=== PATIENT | female | born 1940 | race Caucasian/White ===

== ENCOUNTER 2016-07-09 10:32 | Emergency (ER) | payer MEDICARE, BC ==
[2016-07-09] MEDS ORDERED: Lidocaine 1% w/Epinephrine 1:100K 30 ML VIAL ONE (11:08)
[2016-07-09] MEDS ORDERED: Ondansetron ODT 4 MG TAB ONE (11:11)
[2016-07-09] MEDS ORDERED: Bacitracin Zinc 1 Packet ONE (11:38)
[2016-07-09] MEDS ORDERED: Adacel (T-DAP) 0.5 ML VIAL ONE (12:09)
--- NOTE | 2016-07-09 12:36 | CT ---
CT OF THE BRAIN WITHOUT CONTRAST: DATE: 07/09/16. FINDINGS: A noncontrast CT was done following trauma. The ventricles are normal in size for age and show no s hift. No intracranial bleeding or extraaxial hematoma was seen. There is no sign of acute stroke o r edema. A few patchy hypolucencies in the deep white matter, particularly around the left frontal horn and basal ganglia, probably old lacunar infarcts and/or other chronic ischemic changes. The ca lvarium appears intact. The sphenoid sinus and mastoid air cells are clear. IMPRESSION: No acute intracranial findings. POS: [facility]
--- NOTE | 2016-07-09 12:47 | RAD ---
CHEST 2 VIEWS: DATE: 07/09/16. FINDINGS: Comparison is made with a 12/17/14 study. The heart seems slightly larger today than before, but there are no congestive changes or pleural ef fusions. The lungs seem fully inflated and clear. No gross fractures were identified. There is no mediastinal widening or shift. The visible thoracic vertebra on the lateral shows some degenerativ e change, but no obvious fracture. IMPRESSION: Possible slight increase in heart size since 2014. No acute traumatic findings. POS: [facility]
--- NOTE | 2016-07-09 12:48 | ERRECORD ---
[facility] EMERGENCY RECORD HPI FALL (10:44 MBRI) CHIEF COMPLAINT: Patient presents for evaluation of fall. HISTORIAN: History provided by patient, History provided by patient's family. LOCATION: Symptoms are localized. QUALITY: Pain is dull in nature, described as aching. TIME COURSE: Sudden onset of symptoms, just prior to arrival, There has been no change in the patient's symptoms over time. SEVERITY: Maximum severity of symptoms moderate, Currently symptoms are moderate. ASSOCIATED WITH: No associated neck pain, No associated chest pain, No associated abdominal pain, No associated back pain, No associated clavicle pain, No associated shoulder pain, No associated elbow pain, No associated wrist pain, No associated hand pain, No associated hip pain, No associated knee pain, No associated ankle pain, No associated abrasion(s), No associated contusion(s), Associated with laceration(s), to the face, No associated deformity, No associated blurred vision, No associated inability to ambulate, No associated inability to bear weight, No associated headache, No associated loss of consciousness, No associated near syncope, No associated neurological symptoms prior to arrival, No associated numbness, No associated paresthesias, No associated shortness of breath, No associated syncope, No associated tingling, No associated vomiting. EXACERBATED BY: Patient's condition exacerbated by nothing. RELIEVED BY: Patient's condition relieved by nothing. RISK FACTORS: No risk factors for spinal injury, Risk factors for intracranial bleed, include age very old, include Eliquis. ROS (10:44 MBRI) CONSTITUTIONAL: Negative constitutional review of systems, Historian denies chills, denies fever. EYES: Negative eye review of systems. ENT: Historian denies rhinorrhea, denies sore throat. CARDIOVASCULAR: Historian denies chest pain, denies dyspnea on exertion. RESPIRATORY: Historian denies cough, denies shortness of breath. GI: Negative gastrointestinal review of systems, Historian denies abdominal pain, denies diarrhea, denies nausea, denies vomiting. GENITOURINARY FEMALE: Historian denies dysuria, denies frequency, denies hematuria, denies urine output changes. MUSCULOSKELETAL: Historian denies back pain, denies deformity, reports fall, reports injury, denies neck pain. SKIN: Negative skin review of systems, Historian denies skin changes. NEUROLOGIC: Negative neurologic review of systems, Historian denies focal weakness, denies sensory changes. HEMO/LYMPHATIC: Historian reports abnormal blood clotting, reports easy bruising. &a-1R&a+25V*p+0X*[id number]*c202B*c15G*c2P*p-0X&a-25V&a+1R Name: Jing Alonzo : 1940 F76 MedRec: [id number] AcctNum: [id number] Prepared: TueJul 09, 2016 12:45 by Interface Page 1 of 5 pMD [facility] EMERGENCY RECORD PAST MEDICAL HISTORY (10:50 LGIB) MEDICAL HISTORY: Flu vaccine up to date, Tetanus not up to date, Pneumococcal vaccine up to date, Past medical history includes history of hypertension, which has been treated, Past medical history includes neurological disease, vertigo. GERD, AFIB, VERIFIED 07/09/16. FEMALE SURGICAL HISTORY: BLADDER SUSPENSION, Surgical history of cholecystectomy, Surgical history of hysterectomy. lt hip replacement. VERIFIED 07/09/16. PSYCHIATRIC HISTORY: ANXIETY. VERIFIED 07/09/16. SOCIAL HISTORY: Patient denies alcohol use, Patient denies drug use, Patient has no smoking history. VERIFIED 07/09/16. KNOWN ALLERGIES Cipro tablet: Reaction: Rash Demerol Penicillins Sulfa (Sulfonamide Antibiotics) CURRENT MEDICATIONS ALPRAZolam: TABLET : Strength - 0.5 mg : ORAL Patient Dose: 0.5 mg Oral every 8 hours PRN. (10:57 LGIB) Coreg: TABLET : Strength - 6.25 mg : ORAL Patient Dose: 1 tab(s) Oral 2 times a day. (10:57 LGIB) Eliquis: TABLET : Strength - 5 mg : ORAL Patient Dose: 5 mg Oral 2 times a day. (10:57 LGIB) Protonix: TABLET, DELAYED RELEASE (ENTERIC COATED) : Strength - 40 mg : ORAL Patient Dose: 40 mg Oral once a day. (10:57 LGIB) escitalopram oxalate: TABLET : Strength - 10 mg : ORAL Patient Dose: 1 tab(s) Oral once a day. (10:57 LGIB) Premarin: TABLET : Strength - 0.3 mg : ORAL Patient Dose: 1 tab(s) Oral once a day (at bedtime). (10:57 LGIB) meclizine: TABLET : Strength - 25 mg : ORAL Patient Dose: 1 tab(s) Oral As Needed. (10:58 LGIB) Multaq: TABLET : Strength - 400 mg : ORAL Patient Dose: Unknown. (10:58 LGIB) VITAL SIGNS VITAL SIGNS: BP: 225/102, Pulse: 66, Resp: 18, O2 sat: 99 on Room Air, Time: 07/09/2016 10:41. (10:41 LGIB) Temp: 98.2 (Oral), Pain: 6, Time: 07/09/2016 10:46. (10:46 LGIB) &a-1R&a+25V*p+0X*[id number]*c202B*c15G*c2P*p-0X&a-25V&a+1R Name: Jing Alonzo : 1940 F76 MedRec: [id number] AcctNum: [id number] Prepared: TueJul 09, 2016 12:45 by Interface Page 2 of 5 pMD [facility] EMERGENCY RECORD BP: 174/82, Pulse: 56, Resp: 18 (Non-Labored), O2 sat: 99 on Room Air, Time: 07/09/2016 10:50. (10:50 LGIB) BP: 157/87, Pulse: 60, Resp: 17 (Non-Labored), Pain: 2, O2 sat: 99 on Room Air, Time: 07/09/2016 12:23. (12:23 LGIB) BP: 164/90, Pulse: 60, Resp: 17 (Non-Labored), O2 sat: 98 on Room Air, Time: 07/09/2016 11:16. (11:16 LGIB) PHYSICAL EXAM (10:44 MBRI) CONSTITUTIONAL: Vital Signs Reviewed, Nursing notes reviewed. HEAD: Head exam included findings of, no Sutherland's sign, No raccoon eyes, contusion with stellate lac of the left lat eyebrow. No local sig ttp noted and no step of the sup orbital rim noted. Remainder of the face and skull have no injury and no ttp noted., normocephalic. EYES: Eye exam included findings of eyelids normal to inspection, Pupils equally round and reactive to light, Extraocular muscles intact. ENT: Ear exam normal, external ear normal, tympanic membranes normal, Pharynx exam normal. NECK: Neck exam included findings of normal range of motion, Trachea midline, no tenderness, no abrasions, no contusions, no ecchymosis, neck clinically cleared without findings of injury and pt A and O x3 and without pain. RESPIRATORY CHEST: Respiratory exam included findings of no respiratory distress, Breath sounds clear, No wheezing, No rales, No rhonchi. CARDIOVASCULAR: Cardiovascular exam included findings of heart rate regular rate and rhythm, Heart sounds normal, Carotids normal. ABDOMEN FEMALE: Abdominal exam included findings of abdomen nontender, Bowel sounds normal, no distension, no pulsatile masses, no peritoneal signs, no rigidity, no guarding, no rebound. BACK: Back exam included findings of normal inspection, no tenderness. UPPER EXTREMITY: Upper extremity exam included findings of inspection normal, range of motion normal, Radial pulse normal, capillary refill less than 2 seconds, distal motor intact, distal sensory intact, no cyanosis, no clubbing, no edema, No trauma noted., Upper extremity exam included findings of inspection normal, Radial pulse normal, no cyanosis, no clubbing, no edema. LOWER EXTREMITY: Left pelvis exam normal, Right pelvis exam normal, Left hip exam normal, Right hip exam normal, Left thigh exam normal, Right thigh exam normal, Left knee exam normal, Right knee exam normal, Left lower leg exam normal, Right lower leg exam normal, Left ankle exam normal, Right ankle exam normal, Left foot exam normal, Right foot exam normal, Lower extremity exam included findings of inspection normal, femoral pulses normal, no cyanosis, no clubbing, no edema, no tenderness noted. NEURO: Neuro exam findings include patient oriented to person, place and time, Speech normal, no focal motor deficits. &a-1R&a+25V*p+0X*[id number]*c202B*c15G*c2P*p-0X&a-25V&a+1R Name: Jing Alonzo : 1940 F76 MedRec: [id number] AcctNum: [id number] Prepared: TueJul 09, 2016 12:45 by Interface Page 3 of 5 pMD [facility] EMERGENCY RECORD SKIN: Skin exam included findings of skin warm, dry, and normal in color, 2cm laceration stellate to the left eyebrow, with contusion. EKG INTERPRETATION (11:14 MBRI) 12 LEAD EKG INTERPRETATION: 12 lead EKG interpreted by Emergency Department Physician at time of study, 12 lead EKG shows normal sinus rhythm, Rate (beats per minute): 62, with premature atrial complexes, Conduction with, complete right bundle branch block, ST segments normal, T waves normal, [place], left. RADIOLOGYINTERPRETATION HEAD: Head CT negative, without contrast, no bleed, no acute changes. (12:00 MBRI) CHEST: Chest films negative, no infiltrates, no pneumothorax, no effusion. (12:16 MBRI) SLACK LINE YARDER: Preliminary review of CT scans by, Radiologist. (12:00 MBRI) Preliminary review of x-rays by, ED Physician. (12:16 MBRI) MEDICATION ADMINISTRATION SUMMARY Drug Name: Adacel(Tdap Adolesn/Adult)(PF), Dose Ordered: 0.5 mL, Route: Intramuscular, Status: Given, Time: 12:15 07/09/2016, Drug Name: ondansetron, Dose Ordered: 4 mg, Route: Sublingual, Status: Given, Time: 11:12 07/09/2016, Detailed record available in Medication Service section. DOCTOR NOTES TEXT: Pt evaluated at this time and appears stable. No findings on my exam or studies to suggest sig injury or issue requiring hospitalization or intervention/consultation. Plan of care discussed with pt and questions answered. Pt was informed of reasons for follow-up and strict reasons for return and they stated understanding. Pt is stable for d/c home at this time. (12:18 MBRI) PT has a hx of HTN and has been asymptomatic with the current pressure. No evidence at this time to suggest an associated cardiovascular or neurologic process requiring further intervention or evaluation during this encounter. The patient is on a medication regimen for this and it is recommended that they follow-up with their PMD to further assess their BP control. (12:30 MBRI) PROBLEM LIST No recorded problems DIAGNOSIS (12:20 MBRI) FINAL: PRIMARY: minor head injury, ADDITIONAL: facial contusion, facial laceration, left rib pain. &a-1R&a+25V*p+0X*f6216Z*c202B*c15G*c2P*p-0X&a-25V&a+1R Name: Jing Alonzo : 1940 F76 MedRec: [id number] AcctNum: [id number] Prepared: TueJul 09, 2016 12:45 by Interface Page 4 of 5 pMD [facility] EMERGENCY RECORD PRESCRIPTION (12:22 MBRI) traMADol: TABLET : 50 mg : ORAL : Quantity: 1 Unit: tab(s) Route: ORAL Schedule: every 6 hours PRN Dispense: 20 May substitute. Refills: No Refills . NOTES: No refills. DISPOSITION PATIENT: Disposition Type: Discharge, Disposition: *Discharge Home, Condition: Good. (12:20 MBRI) Patient left the department. (12:37 LGIB) Ahuja: VICKIB=GABRIELLE Harris, Mickie MBRI=DO Shepard Matthew &a-1R&a+25V*p+0X*u5000X*c202B*c15G*c2P*p-0X&a-25V&a+1R Name: Jing Alonzo : 1940 F76 MedRec: [id number] AcctNum: [id number] Prepared: TueJul 09, 2016 12:45 by Interface Page 5 of 5 pMD MTDD
--- NOTE | 2016-07-09 12:54 | PICIS ---
[facility] EMERGENCY RECORD TRIAGE (TueJul 09, 2016 10:41 LGIB) PATIENT: NAME: Jing Alonzo, AGE: 76, GENDER: female, : Sat 1940, TIME OF GREET: TueJul 09, 2016 10:33, PREFERRED LANGUAGE: Irish, ETHNICITY: Not or , ECODE BILLING MAP: [facility], SSN: [id number], Zip Code: [address], KG WEIGHT: 72.57, PHONE: , , , PERSON ID: [id number], PAYMENT: [employer]. (TueJul 09, 2016 10:41 LGIB) TRIAGE NOTES: fall in laundry room, hit head. small laceration to left forehead. AOX4, NAD, RR even and unlabored. PT TAKES ELIQUIS. Denies neck pain. (TueJul 09, 2016 10:41 LGIB) COMPLAINT: fall. (TueJul 09, 2016 10:41 LGIB) ADMISSION: URGENCY: 2 Emergent, ADMISSION SOURCE: Home, TRANSPORT: CAR, BED: ER -02. (TueJul 09, 2016 10:41 LGIB) SIRS SCORING: Heart Rate 55-109 (0), Temp range 96.8-101.1 (0), respiratory rate 12-24 (0), Mental Status altered: no (0), Total SIRS Score 0. (10:50 LGIB) PROVIDERS: TRIAGE NURSE: Mickie Harris RN. (TueJul 09, 2016 10:41 LGIB) PREVIOUS VISIT ALLERGIES: Cipro tablet, Demerol, Penicillins, Sulfa (Sulfonamide Antibiotics). (TueJul 09, 2016 10:41 LGIB) Cipro tablet, Demerol, Penicillins, Sulfa (Sulfonamide Antibiotics). (10:50 LGIB) KNOWN ALLERGIES Cipro tablet: Reaction: Rash Demerol Penicillins Sulfa (Sulfonamide Antibiotics) CURRENT MEDICATIONS ALPRAZolam: TABLET : Strength - 0.5 mg : ORAL Patient Dose: 0.5 mg Oral every 8 hours PRN. (10:57 LGIB) Coreg: TABLET : Strength - 6.25 mg : ORAL Patient Dose: 1 tab(s) Oral 2 times a day. (10:57 LGIB) Eliquis: TABLET : Strength - 5 mg : ORAL Patient Dose: 5 mg Oral 2 times a day. (10:57 LGIB) Protonix: TABLET, DELAYED RELEASE (ENTERIC COATED) : Strength - 40 mg : ORAL Patient Dose: 40 mg Oral once a day. (10:57 LGIB) escitalopram oxalate: TABLET : Strength - 10 mg : ORAL Patient Dose: 1 tab(s) Oral once a day. (10:57 LGIB) Premarin: TABLET : Strength - 0.3 mg : ORAL Patient Dose: 1 tab(s) Oral once a day (at bedtime). (10:57 LGIB) &a-1R&a+25V*p+0X*u7802R*c202B*c15G*c2P*p-0X&a-25V&a+1R Name: Jing Alonzo : 1940 F76 MedRec: [id number] AcctNum: [id number] Prepared: TueJul 09, 2016 12:51 by Interface Page 1 of 9 pMD [facility] EMERGENCY RECORD meclizine: TABLET : Strength - 25 mg : ORAL Patient Dose: 1 tab(s) Oral As Needed. (10:58 LGIB) Multaq: TABLET : Strength - 400 mg : ORAL Patient Dose: Unknown. (10:58 LGIB) VITAL SIGNS VITAL SIGNS: BP: 225/102, Pulse: 66, Resp: 18, O2 sat: 99 on Room Air, Time: 07/09/2016 10:41. (10:41 LGIB) Temp: 98.2 (Oral), Pain: 6, Time: 07/09/2016 10:46. (10:46 LGIB) BP: 174/82, Pulse: 56, Resp: 18 (Non-Labored), O2 sat: 99 on Room Air, Time: 07/09/2016 10:50. (10:50 LGIB) BP: 157/87, Pulse: 60, Resp: 17 (Non-Labored), Pain: 2, O2 sat: 99 on Room Air, Time: 07/09/2016 12:23. (12:23 LGIB) BP: 164/90, Pulse: 60, Resp: 17 (Non-Labored), O2 sat: 98 on Room Air, Time: 07/09/2016 11:16. (11:16 LGIB) NURSING ASSESSMENT: NEURO (10:50 LGIB) GCS: (6) Obeying command:, (5) Orientated:, (4) Spontaneous eye opening., Result: 15. CONSTITUTIONAL: Complex assessment performed, Patient arrives ambulatory, Unsteady gait, Assistance to cart, History obtained from patient, Patient appears comfortable, Patient cooperative, Patient alert, Oriented to person, place and time, Skin warm, Skin dry, Skin normal in color, Mucous membranes pink, Mucous membranes moist, Patient is well-groomed, Patient complains of FALL, PT HAD FALL IN HER LAUNDRY ROOM. FELL FORWARD AND HIT HEAD. DENIES NECK PAIN. DENIES LOC, DENIES NECK PAIN, PT ANSWERING QUESTIONS APPROPRIATELY. AOX4, NAD, RR EVEN AND UNLABORED. TAKES BLOOD THINNING MEDICATION. PAIN: aching pain, LEFT FOREHEAD, ABOVE LEFT ORBIT, Onset of pain 07/09/2016 1000, on a scale 0-10 patient rates pain as 6, Nothing has been tried to alleviate the pain. NEURO: Pupils equally round and reactive to light, Able to close eyes, Face symmetrical, Speech normal, Hand grasps equal, Upper extremity strength strong, Lower extremity strength strong, Foot press equal, no associated dizziness present, no associated loss of consciousness, no associated vomiting, no associated weakness. ENT: Ear assessment findings include ear normal to inspection, Nasal assessment findings include nose normal to inspection, Mouth and throat assessment findings include mouth inspection normal. NOTES: Notes: PT WITH 2CM LACERATION OVER LEFT EYEBROW. BLEEDING CONTROLLED. SAFETY: Side rails up, Cart/Stretcher in lowest position, Family at bedside, Call light within reach, Hospital ID band on. NURSING PROCEDURE: BEDSIDE TESTING (10:55 ERUI) GLUCOSE: Glucose testing indicated for STATUS POST FALL, &a-1R&a+25V*p+0X*k2181J*c202B*c15G*c2P*p-0X&a-25V&a+1R Name: Jing Alonzo : 1940 F76 MedRec: [id number] AcctNum: [id number] Prepared: TueJul 09, 2016 12:51 by Interface Page 2 of 9 pMD [facility] EMERGENCY RECORD Capillary blood sample, Result (mg/dl) 105. SAFETY: Side rails up, Cart/Stretcher in lowest position, Family at bedside, Call light within reach, Hospital ID band on. NURSING PROCEDURE: TOOL CRIB LEAD (10:41 LGIB) TOOL CRIB LEAD: Patient placed on bus monitor, Patient placed on non-invasive blood pressure monitor, Patient placed on continuous pulse oximetry. NURSING PROCEDURE: DISCHARGE NOTE (12:37 LGIB) DISCHARGE: Patient discharged to home, in a wheelchair, family driving, accompanied by other family member, Summary of Care printed/ provided, Patient requested and was provided an electronic copy of Discharge Instructions, Discharge instructions given to patient, Simple or moderate discharge teaching performed, Prescriptions given and instructions on side effects given, Above person(s) verbalized understanding of discharge instructions and follow-up care, Patient treated and evaluated by physician. BELONGINGS: Belongings and valuables with patient at time of discharge include:, Belongings remain with patient, Valuables remain with patient. NURSING PROCEDURE: EKG CHART (10:50 LGIB) EK lead EKG performed on the left chest, done by GABRIELLE ANDINO. FOLLOW-UP: After procedure, EKG for interpretation given to Dr. SHEPARD. NURSING PROCEDURE: NURSE NOTES NURSES NOTES: Notes: PT REPORTING LEFT SIDED RIB PAIN ONCE WE WERE TRYING TO CHANGE INTO HER CLOTHES. DR SHEPARD NOTIFIED AND PATIENT WILL GET AN XRAY. (11:45 LGIB) Notes: BACITRACIN APPLIED TO SUTURE SITE AND COVERED WITH A LARGE BAND-AID. (11:40 LGIB) NURSING PROCEDURE: TRANSPORT TO TESTS TRANSPORT TO TESTS: Transport indicated to facilitate diagnosis, Patient transported to CT scan, via cart, Accompanied by x-ray electro mechanical technician. (10:58 LGIB) Transport indicated to facilitate diagnosis, Patient transported to x-ray, via wheelchair, Accompanied by x-ray electro mechanical technician. (11:53 LGIB) FOLLOW-UP: After procedure, patient returned to emergency department. (11:06 LGIB) NURSING PROCEDURE: WOUND CARE (11:20 LGIB) WOUND CARE: Wound care indicated for preparing wound for repair, Local infiltration with, 1% lidocaine with epinephrine, Wound irrigated with 250 mL of normal saline, by GABRIELLE PARNELL, 100ML NS, Wound repaired with sutures, by DR SHEPARD. ORDER DETAILS &a-1R&a+25V*p+0X*o9708P*c202B*c15G*c2P*p-0X&a-25V&a+1R Name: Jing Alonzo : 1940 F76 MedRec: [id number] AcctNum: [id number] Prepared: TueJul 09, 2016 12:51 by Interface Page 3 of 9 D [facility] EMERGENCY RECORD Order Name: BLOOD GLUCOSE MONITOR, Status: Done, Time: 10:59 07/09/2016, User: ERUI, - Ordered for: DO Shepard Matthew, - Entered by: DO Shepard Matthew - TueJul 09, 2016 10:43, - Quantity: 1, Order Name: TOOL CRIB LEAD ED, Status: Done, Time: 10:53 07/09/2016, User: ALBIN, - Ordered for: DO Shepard Matthew, - Entered by: DO Shepard Matthew - TueJul 09, 2016 10:43, - Quantity: 1, Order Name: CLEAN WOUND, Status: Done, Time: 11:24 07/09/2016, User: LGIB, - Ordered for: DO Shepard Matthew, - Entered by: DO Shepard Matthew - TueJul 09, 2016 10:44, - Quantity: 1, Order Name: CT Brain WO Con, Status: Active, Time: 10:43 07/09/2016, User: MEGAN, - Ordered for: DO Shepard Matthew, - Entered by: DO Shepard Matthew - TueJul 09, 2016 10:43, - Quantity: 1, Order Name: EKG 12 Lead in Emergency Room, Status: Active, Time: 10:43 07/09/2016, User: MBRI, - Ordered for: DO Shepard Matthew, - Entered by: DO Shepard Matthew - TueJul 09, 2016 10:43, - Quantity: 1, Order Name: ERRT Pulse Oximeter ER, Status: Active, Time: 10:43 07/09/2016, User: MBRI, - Ordered for: DO Shepard Matthew, - Entered by: DO Shepard Matthew - TueJul 09, 2016 10:43, - Quantity: 1, Order Name: XR Chest Pa & Lat STANDARD, Status: Active, Time: 11:46 07/09/2016, User: MEGAN, - Ordered for: DO Shepard Matthew, - Entered by: DO Shepard Matthew - TueJul 09, 2016 11:46, - Quantity: 1. MEDICATION ADMINISTRATION SUMMARY Drug Name: Adacel(Tdap Adolesn/Adult)(PF), Dose Ordered: 0.5 mL, Route: Intramuscular, Status: Given, Time: 12:15 07/09/2016, Drug Name: ondansetron, Dose Ordered: 4 mg, Route: Sublingual, Status: Given, Time: 11:12 07/09/2016, Detailed record available in Medication Service section. MEDICATION SERVICE Adacel(Tdap Adolesn/Adult)(PF): Order: Adacel(Tdap Adolesn/Adult)(PF) (diphth,pertuss(acell),tet vac/preservative free) - Dose: 0.5 mL : Intramuscular Ordered by: Quinn Shepard DO &a-1R&a+25V*p+0X*n2915V*c202B*c15G*c2P*p-0X&a-25V&a+1R Name: Jing Alonzo : 1940 F76 MedRec: [id number] AcctNum: [id number] Prepared: TueJul 09, 2016 12:51 by Interface Page 4 of 9 pMD [facility] EMERGENCY RECORD Entered by: Quinn Shepard DO TueJul 09, 2016 12:05 , Acknowledged by: Mickie Harris RN TueJul 09, 2016 12:08 Documented as given by: Mickie Harris RN TueJul 09, 2016 12:15 Patient, Medication, Dose, Route and Time verified prior to administration. IM immunization, Medication administered to right deltoid, Correct patient, time, route, dose and medication confirmed prior to administration, Patient advised of actions and side-effects prior to administration, Allergies confirmed and medications reviewed prior to administration, Patient in position of comfort, Side rails up, Cart in lowest position, Family at bedside. ondansetron: Order: ondansetron - Dose: 4 mg : Sublingual POTENTIAL SEVERE INTERACTION: Multaq - Benefits outweigh risks Schedule: Now Ordered by: Quinn Shepard DO Entered by: Quinn Shepard DO TueJul 09, 2016 11:12 Documented as given by: Mickie Harris RN TueJul 09, 2016 11:12 Patient, Medication, Dose, Route and Time verified prior to administration. Site: Medication administered S.L., Correct patient, time, route, dose and medication confirmed prior to administration, Patient advised of actions and side-effects prior to administration, Allergies confirmed and medications reviewed prior to administration, Patient in position of comfort, Side rails up, Cart in lowest position, Family at bedside. : Follow Up : Decreased nausea. (11:40 LGIB) HPI FALL (10:44 MBRI) CHIEF COMPLAINT: Patient presents for evaluation of fall. HISTORIAN: History provided by patient, History provided by patient's family. LOCATION: Symptoms are localized. QUALITY: Pain is dull in nature, described as aching. TIME COURSE: Sudden onset of symptoms, just prior to arrival, There has been no change in the patient's symptoms over time. SEVERITY: Maximum severity of symptoms moderate, Currently symptoms are moderate. ASSOCIATED WITH: No associated neck pain, No associated chest pain, No associated abdominal pain, No associated back pain, No associated clavicle pain, No associated shoulder pain, No associated elbow pain, No associated wrist pain, No associated hand pain, No associated hip pain, No associated knee pain, No associated ankle pain, No associated abrasion(s), No associated contusion(s), Associated with laceration(s), to the face, No associated deformity, No associated blurred vision, No associated inability to ambulate, No associated inability to bear weight, No associated headache, No associated loss of consciousness, No associated near syncope, No associated neurological symptoms prior to arrival, No associated numbness, No associated paresthesias, No associated shortness of &a-1R&a+25V*p+0X*v0628X*c202B*c15G*c2P*p-0X&a-25V&a+1R Name: Jing Alonzo : 1940 F76 MedRec: [id number] AcctNum: [id number] Prepared: TueJul 09, 2016 12:51 by Interface Page 5 of 9 pMD [facility] EMERGENCY RECORD breath, No associated syncope, No associated tingling, No associated vomiting. EXACERBATED BY: Patient's condition exacerbated by nothing. RELIEVED BY: Patient's condition relieved by nothing. RISK FACTORS: No risk factors for spinal injury, Risk factors for intracranial bleed, include age very old, include Eliquis. ROS (10:44 MBRI) CONSTITUTIONAL: Negative constitutional review of systems, Historian denies chills, denies fever. EYES: Negative eye review of systems. ENT: Historian denies rhinorrhea, denies sore throat. CARDIOVASCULAR: Historian denies chest pain, denies dyspnea on exertion. RESPIRATORY: Historian denies cough, denies shortness of breath. GI: Negative gastrointestinal review of systems, Historian denies abdominal pain, denies diarrhea, denies nausea, denies vomiting. GENITOURINARY FEMALE: Historian denies dysuria, denies frequency, denies hematuria, denies urine output changes. MUSCULOSKELETAL: Historian denies back pain, denies deformity, reports fall, reports injury, denies neck pain. SKIN: Negative skin review of systems, Historian denies skin changes. NEUROLOGIC: Negative neurologic review of systems, Historian denies focal weakness, denies sensory changes. HEMO/LYMPHATIC: Historian reports abnormal blood clotting, reports easy bruising. PAST MEDICAL HISTORY (10:50 LGIB) MEDICAL HISTORY: Flu vaccine up to date, Tetanus not up to date, Pneumococcal vaccine up to date, Past medical history includes history of hypertension, which has been treated, Past medical history includes neurological disease, vertigo. GERD, AFIB, VERIFIED 07/09/16. FEMALE SURGICAL HISTORY: BLADDER SUSPENSION, Surgical history of cholecystectomy, Surgical history of hysterectomy. lt hip replacement. VERIFIED 07/09/16. PSYCHIATRIC HISTORY: ANXIETY. VERIFIED 07/09/16. SOCIAL HISTORY: Patient denies alcohol use, Patient denies drug use, Patient has no smoking history. VERIFIED 07/09/16. PHYSICAL EXAM (10:44 MBRI) CONSTITUTIONAL: Vital Signs Reviewed, Nursing notes reviewed. HEAD: Head exam included findings of, no Sutherland's sign, No raccoon eyes, contusion with stellate lac of the left lat eyebrow. No local sig ttp noted and no step of the sup orbital rim noted. Remainder of the face and skull have no injury and no ttp noted., normocephalic. EYES: Eye exam included findings of eyelids normal to inspection, Pupils equally round and reactive to light, Extraocular muscles &a-1R&a+25V*p+0X*u4484F*c202B*c15G*c2P*p-0X&a-25V&a+1R Name: Jing Alonzo : 1940 F76 MedRec: [id number] AcctNum: [id number] Prepared: TueJul 09, 2016 12:51 by Interface Page 6 of 9 pMD [facility] EMERGENCY RECORD intact. ENT: Ear exam normal, external ear normal, tympanic membranes normal, Pharynx exam normal. NECK: Neck exam included findings of normal range of motion, Trachea midline, no tenderness, no abrasions, no contusions, no ecchymosis, neck clinically cleared without findings of injury and pt A and O x3 and without pain. RESPIRATORY CHEST: Respiratory exam included findings of no respiratory distress, Breath sounds clear, No wheezing, No rales, No rhonchi. CARDIOVASCULAR: Cardiovascular exam included findings of heart rate regular rate and rhythm, Heart sounds normal, Carotids normal. ABDOMEN FEMALE: Abdominal exam included findings of abdomen nontender, Bowel sounds normal, no distension, no pulsatile masses, no peritoneal signs, no rigidity, no guarding, no rebound. BACK: Back exam included findings of normal inspection, no tenderness. UPPER EXTREMITY: Upper extremity exam included findings of inspection normal, range of motion normal, Radial pulse normal, capillary refill less than 2 seconds, distal motor intact, distal sensory intact, no cyanosis, no clubbing, no edema, No trauma noted., Upper extremity exam included findings of inspection normal, Radial pulse normal, no cyanosis, no clubbing, no edema. LOWER EXTREMITY: Left pelvis exam normal, Right pelvis exam normal, Left hip exam normal, Right hip exam normal, Left thigh exam normal, Right thigh exam normal, Left knee exam normal, Right knee exam normal, Left lower leg exam normal, Right lower leg exam normal, Left ankle exam normal, Right ankle exam normal, Left foot exam normal, Right foot exam normal, Lower extremity exam included findings of inspection normal, femoral pulses normal, no cyanosis, no clubbing, no edema, no tenderness noted. NEURO: Neuro exam findings include patient oriented to person, place and time, Speech normal, no focal motor deficits. SKIN: Skin exam included findings of skin warm, dry, and normal in color, 2cm laceration stellate to the left eyebrow, with contusion. EVENTS TRANSFER: Triage to Emergency Emergency Room -02. (TueJul 09, 2016 10:41 LGIB) Removed from Emergency Emergency Room -02. (12:37 LGIB) RADIOLOGYINTERPRETATION HEAD: Head CT negative, without contrast, no bleed, no acute changes. (12:00 MBRI) CHEST: Chest films negative, no infiltrates, no pneumothorax, no effusion. (12:16 MBRI) MEDICAL APPARATUS MODEL MAKER: Preliminary review of CT scans by, Radiologist. (12:00 MBRI) &a-1R&a+25V*p+0X*w8699C*c202B*c15G*c2P*p-0X&a-25V&a+1R Name: Jing Alonzo : 1940 F76 MedRec: [id number] AcctNum: [id number] Prepared: TueJul 09, 2016 12:51 by Interface Page 7 of 9 D [facility] EMERGENCY RECORD Preliminary review of x-rays by, ED Physician. (12:16 MBRI) EKG INTERPRETATION (11:14 MBRI) 12 LEAD EKG INTERPRETATION: 12 lead EKG interpreted by Emergency Department Physician at time of study, 12 lead EKG shows normal sinus rhythm, Rate (beats per minute): 62, with premature atrial complexes, Conduction with, complete right bundle branch block, ST segments normal, T waves normal, [place], left. O2SAT INTERPRETATION (11:14 MBRI) O2SAT: Oxygen saturation interpretation: Normal. DOCTOR NOTES TEXT: Pt evaluated at this time and appears stable. No findings on my exam or studies to suggest sig injury or issue requiring hospitalization or intervention/consultation. Plan of care discussed with pt and questions answered. Pt was informed of reasons for follow-up and strict reasons for return and they stated understanding. Pt is stable for d/c home at this time. (12:18 MBRI) PT has a hx of HTN and has been asymptomatic with the current pressure. No evidence at this time to suggest an associated cardiovascular or neurologic process requiring further intervention or evaluation during this encounter. The patient is on a medication regimen for this and it is recommended that they follow-up with their PMD to further assess their BP control. (12:30 MBRI) LACERATION-SINGLE REPAIR (12:04 MBRI) TIMEOUT: Side and/or site verified. LACERATION REPAIR: Side and/or site verified, Verbal consent obtained, No contamination, Deep structures not involved, no bony deformity, ecchymosis present, no tendon involvement, no joint involvement, Wound not near a neurovascular bundle, No signs of compartment syndrome, Local infiltration with, 1% LIDOCAINE with epinephrine, 3mL, Patient prepped and draped in usual sterile fashion, Wound irrigated with normal saline, Simple repair of laceration, to the face, left eyebrow, total length 2.0 cm, Skin layer closed, using 5.0, prolene suture, 4 sutures, interrupted, After procedure, wound well approximated, antibiotic ointment applied, dressing applied, No complications, Tetanus status not up to date, tetanus immunization ordered, Patient tolerated the procedure well, No foreign body present. PROBLEM LIST No recorded problems DIAGNOSIS (12:20 MBRI) FINAL: PRIMARY: minor head injury, ADDITIONAL: facial contusion, facial laceration, left rib pain. &a-1R&a+25V*p+0X*s8447O*c202B*c15G*c2P*p-0X&a-25V&a+1R Name: Jing Alonzo : 1940 F76 MedRec: [id number] AcctNum: [id number] Prepared: TueJul 09, 2016 12:51 by Interface Page 8 of 9 pMD [facility] EMERGENCY RECORD DISPOSITION PATIENT: Disposition Type: Discharge, Disposition: *Discharge Home, Condition: Good. (12:20 MBRI) Patient left the department. (12:37 LGIB) INSTRUCTION (12:24 MBRI) DISCHARGE: RIB: CONTUSION VS MINOR FRACTURE, CLOSED HEAD INJURY NO WAKEUP ADULT, FACIAL LACERATION SUTURE TAPE. FOLLOWUP: [facility], [address] [place] [address], , Follow up with Primary Care Physician in 3-4 days. SPECIAL: Please return for any further issues or concerns, we would be happy to see you. We hope you feel better soon. Follow-up with your PCP Tylenol for Pain. PRESCRIPTION (12:22 MBRI) traMADol: TABLET : 50 mg : ORAL : Quantity: 1 Unit: tab(s) Route: ORAL Schedule: every 6 hours PRN Dispense: 20 May substitute. Refills: No Refills . NOTES: No refills. IMAGING *EKG: Image captured from scanner. (11:59 LGIB) TETANUS CONSENT: Image captured from scanner. (12:15 LGIB) *DISCHARGE INSTRUCTIONS RECEIPT: Image captured from scanner. (12:39 LGIB) *SUPPLY CHARGE SHEET: Image captured from scanner. (12:39 LGIB) RESULTS (11:19 MBRI) LABORATORY: Accuchek Collection DT: TueJul 09, 2016 11:15, Accuchek 105 mg/dL, Range (70-110). Ahuja: ERUI=GABRIELLE Cancino, Marley LGIB=GABRIELLE Harris, Mickie MBRI=DO Shepard Matthew &a-1R&a+25V*p+0X*t9012O*c202B*c15G*c2P*p-0X&a-25V&a+1R Name: Jing Alonzo : 1940 F76 MedRec: [id number] AcctNum: [id number] Prepared: TueJul 09, 2016 12:51 by Interface Page 9 of 9 pMD [facility] MEDICATION RECONCILIATION You were seen in the Emergency Department on: TueJul 09, 2016 KNOWN ALLERGIES Cipro tablet: Reaction: Rash Demerol Penicillins Sulfa (Sulfonamide Antibiotics) MEDICATIONS GIVEN WHILE IN THE EMERGENCY DEPARTMENT ondansetron - Dose: 4 milligram(s) : Sublingual Adacel(Tdap Adolesn/Adult)(PF) (diphth,pertuss(acell),tet vac/preservative free) - Dose: 0.5 milliliter(s) : Intramuscular HOME MEDICATIONS CONTINUE PRESCRIBED ALPRAZolam : TABLET : Strength - 0.5 mg : ORAL Continue as prescribed Patient had been takin.5 mg Oral every 8 hours PRN. Coreg : TABLET : Strength - 6.25 mg : ORAL Continue as prescribed Patient had been takin tab(s) Oral 2 times a day. Eliquis : TABLET : Strength - 5 mg : ORAL Continue as prescribed Patient had been takin mg Oral 2 times a day. escitalopram oxalate : TABLET : Strength - 10 mg : ORAL Continue as prescribed Patient had been takin tab(s) Oral once a day. meclizine : TABLET : Strength - 25 mg : ORAL Continue as prescribed Patient had been takin tab(s) Oral As Needed. Multaq : TABLET : Strength - 400 mg : ORAL Continue as prescribed Patient had been taking: Dose unknown Premarin : TABLET : Strength - 0.3 mg : ORAL Continue as prescribed Patient had been takin tab(s) Oral once a day (at bedtime). &a-1R&a+25V*p+0X*l5884N*c202B*c15G*c2P*p-0X&a-25V&a+1R Name: Jing Alonzo : 1940 F76 MedRec: [id number] AcctNum: [id number] Prepared: TueJul 09, 2016 12:51 by Interface pMD [facility] MEDICATION RECONCILIATION Protonix : TABLET, DELAYED RELEASE (ENTERIC COATED) : Strength - 40 mg : ORAL Continue as prescribed Patient had been takin mg Oral once a day. Notes from the emergency department Reviewed with family PRESCRIPTIONS (1) &a-1R&a+25V*p+0X*j3224C*c202B*c15G*c2P*p-0X&a-25V&a+1R Name: Jing Alonzo : 1940 F76 MedRec: [id number] AcctNum: [id number] Prepared: TueJul 09, 2016 12:51 by Interface pMD [facility]onica
== END 2016-07-09 12:37 | disposition home or self-care (01) ==
LOC: BURERS 10:32
DX: S01.81XA Laceration without foreign body of other part of head, initial encounter (principal); R07.81 Pleurodynia; I10 Essential (primary) hypertension; K21.9 Gastro-esophageal reflux disease without esophagitis; I48.91 Unspecified atrial fibrillation; Z79.899 Other long term (current) drug therapy; W19.XXXA Unspecified fall, initial encounter
CPT/HCPCS: 12011; 36416; 70450; 71020; 90471; 90715; 93005; 94760; J2001; Q0162

== ENCOUNTER 2018-08-06 11:34 | Emergency (ER) | payer MEDICARE, BC ==
[2018-08-06 11:57] LABS: Bilirubin Negative (Negative); Blood, Urine Negative (Negative); Clarity Clear (Clear); Glucose, Urine (Dipstick) Negative (Negative); Leukocyte Negative (Negative); Nitrite Negative (Negative); Protein, Urine (Dipstick) Negative (Neg-Trace); Urobilinogen 0.2 mg/dL (0.2-1.0)
[2018-08-06] MEDS ORDERED: Phenazopyridine HCl 97.5 MG TABLET ONE (12:03)
== END 2018-08-06 12:09 | disposition home or self-care (01) ==
LOC: BURERS 11:34
DX: R30.0 Dysuria (principal); I48.91 Unspecified atrial fibrillation; K21.9 Gastro-esophageal reflux disease without esophagitis; I10 Essential (primary) hypertension; F41.9 Anxiety disorder, unspecified; Z79.899 Other long term (current) drug therapy
CPT/HCPCS: 81003; 87086; 99283

== ENCOUNTER 2018-10-09 08:31 | Emergency (ER) | payer MEDICARE, BC ==
[2018-10-09 08:52] LABS: #Eosinphils 0.1 thou/uL (0.0-0.7); #Lymphocytes 1.3 thou/uL (1.20-3.40); #Monocytes 0.6 thou/uL (0.11-0.59); #Neutrophils 4.9 thou/uL (1.40-6.50); %Basophils 0.7 % (0.0-1.0); %Eosinophils 1.9 % (0.0-10.0); %Lymphocytes 18.2 % (21.0-51.0); %Monocytes 8.5 % (0.0-10.0); %Neutrophils 70.8 % (42.0-75.0); Hemoglobin 12.6 g/dL (12.0-16.0); Mean Corpuscular HGB CONC 32.6 g/dL (32.0-36.0); Mean Corpuscular Volume 89.1 fL (78.0-98.0); Mean Platelet Volume 6.9 fL (7.4-10.4); Platelet Count 298 thou/uL (130-400); RBC Distribution Width 11.6 % (11.5-14.5); Red Blood Cell (RBC) Count 4.33 mill/uL (4.20-5.40); White Blood Cell (WBC) Count 6.9 thou/uL (4.8-10.8)
[2018-10-09 09:07] LABS: ALT (SGPT) 14 U/L (8-55); AST (SGOT) 19 U/L (5-34); Albumin 4.2 g/dL (3.4-4.8); Alkaline Phosphatase 91 U/L (40-150); Anion Gap 12 mmol/L (10-20); BUN (Urea Nitrogen) 12 mg/dL (9.8-20.1); Bilirubin, Total 0.5 mg/dL (0.2-1.2); Calc. Creatinine Clearance 0 mL/min (70-130); Calcium 9.8 mg/dL (7.8-10.44); Carbon Dioxide 23 mmol/L (23-31); Chloride 106 mmol/L (98-107); Estimated GFR-MDRD 59; Globulin 3.8 g/dL (2.4-3.5); Glucose 96 mg/dL (83-110); Potassium 4.2 mmol/L (3.5-5.1); Sodium 137 mmol/L (136-145)
[2018-10-09 10:04] LABS: Clarity Clear (Clear); Glucose, Urine (Dipstick) Negative (Negative); Leukocyte Negative (Negative); Nitrite Negative (Negative); Protein, Urine (Dipstick) Negative (Neg-Trace); Specific Gravity, Urine 1.007 (1.005-1.030)
[2018-10-09 10:05] LABS: Bilirubin Negative (Negative); Blood, Urine Negative (Negative); Urobilinogen 0.2 mg/dL (0.2-1.0)
--- NOTE | 2018-10-09 13:01 | RAD ---
PORTABLE CHEST: DATE: 10/09/2018. FINDINGS: An AP portable film at 0904 is compared with a 03/23/2018 study. The heart is normal in size and the lungs are clear. No infiltrate or effusion was seen. There is n o vascular congestion or edema. The trachea is midline. IMPRESSION: No acute thoracic findings. POS: [facility]
== END 2018-10-09 10:35 | disposition home or self-care (01) ==
LOC: BURERS 08:31
DX: R53.1 Weakness (principal); I48.91 Unspecified atrial fibrillation; K21.9 Gastro-esophageal reflux disease without esophagitis; I10 Essential (primary) hypertension; F41.9 Anxiety disorder, unspecified; Z79.899 Other long term (current) drug therapy
CPT/HCPCS: 71045; 80053; 81003; 83880; 84484; 85025; 85379; 93005; 94760

== ENCOUNTER 2018-11-13 11:24 | Emergency (ER) | payer MEDICARE, BC ==
[2018-11-13 12:23] LABS: Bilirubin Negative (Negative); Blood, Urine Trace (Negative); Clarity Cloudy (Clear); Glucose, Urine (Dipstick) Negative (Negative); Leukocyte Moderate (Negative); Nitrite Positive (Negative); Protein, Urine (Dipstick) Negative (Neg-Trace); Specific Gravity, Urine 1.015 (1.005-1.030); Urobilinogen 0.2 mg/dL (0.2-1.0)
[2018-11-13 12:26] LABS: Bacteria/HPF 4+ HPF (None Seen); RBC/HPF 0-3 HPF (0-3); Squamous Epithelial 0-3 HPF (0-3); WBC/HPF 21-50 HPF (0-3)
== END 2018-11-13 12:56 | disposition home or self-care (01) ==
LOC: BURERS 11:24
DX: N30.01 Acute cystitis with hematuria (principal); I10 Essential (primary) hypertension; I48.91 Unspecified atrial fibrillation; K21.9 Gastro-esophageal reflux disease without esophagitis; Z79.899 Other long term (current) drug therapy
CPT/HCPCS: 51701; 81003; 81015; 87077; 87086; 87186; A4353

== ENCOUNTER 2019-02-08 14:59 | Emergency (ER) | payer MEDICARE, BC ==
[2019-02-08 15:37] LABS: Bilirubin Negative (Negative); Blood, Urine Negative (Negative); Clarity Cloudy (Clear); Glucose, Urine (Dipstick) Negative (Negative); Leukocyte Moderate (Negative); Nitrite Positive (Negative); Protein, Urine (Dipstick) Negative (Neg-Trace); Urobilinogen 0.2 mg/dL (Less than 2)
[2019-02-08 16:14] LABS: #Eosinphils 0.1 thou/uL (0.0-0.7); #Lymphocytes 1.3 thou/uL (1.20-3.40); #Monocytes 0.4 thou/uL (0.11-0.59); #Neutrophils 3.1 thou/uL (1.40-6.50); %Basophils 0.7 % (0.0-1.0); %Eosinophils 1.8 % (0.0-10.0); %Lymphocytes 26.6 % (21.0-51.0); %Monocytes 8.9 % (0.0-10.0); Hemoglobin 11.8 g/dL (12.0-16.0); Mean Corpuscular HGB CONC 32.2 g/dL (32.0-36.0); Mean Corpuscular Hemoglobin 28.8 pg (27.0-31.0); Mean Corpuscular Volume 89.6 fL (78.0-98.0); Mean Platelet Volume 6.4 fL (7.4-10.4); Platelet Count 293 thou/uL (130-400); RBC Distribution Width 11.7 % (11.5-14.5); Red Blood Cell (RBC) Count 4.09 mill/uL (4.20-5.40)
[2019-02-08 16:16] LABS: Bacteria/HPF 4+ HPF (None Seen); Broad Cast None Seen LPF (None Seen); Calcium Oxalate Crystals None Seen HPF (None Seen); Cellular Cast None Seen LPF (None Seen); Epithelial Cast None Seen LPF (None Seen); Fatty Cast None Seen LPF (None Seen); Mucous/LPF None Seen LPF (<2+); Other Casts None Seen LPF (None Seen); Oval Fat Bodies/HPF None Seen HPF (None Seen); RBC/HPF None Seen HPF (0-3); Red Blood Cell Cast None Seen LPF (None Seen); Renal Epithelial None Seen HPF (None Seen); Sperm/HPF None Seen HPF (None Seen); Squamous Epithelial 0-3 HPF (0-3); Transitional Epithelial None Seen HPF (None Seen); Trichomonas/HPF None Seen HPF (None Seen); Triple Phosphate Crystal None Seen HPF (None Seen); Unclassified Crystals None Seen HPF (None Seen); Waxy Cast None Seen LPF (None Seen); White Blood Cell Cast None Seen LPF (None Seen); Yeast-Budding None Seen HPF (None Seen); Yeast-Hyphae None Seen HPF (None Seen)
[2019-02-08 16:21] LABS: INR-International Normal Ratio 1.4; Prothrombin Time 17.3 SEC (12.0-14.7)
[2019-02-08 16:29] LABS: ALT (SGPT) 13 U/L (8-55); AST (SGOT) 21 U/L (5-34); Alkaline Phosphatase 87 U/L (40-150); Anion Gap 13 mmol/L (10-20); BUN (Urea Nitrogen) 13 mg/dL (9.8-20.1); Bilirubin, Total 0.3 mg/dL (0.2-1.2); Calc. Creatinine Clearance 0 mL/min (70-130); Calcium 9.3 mg/dL (7.8-10.44); Carbon Dioxide 22 mmol/L (23-31); Chloride 106 mmol/L (98-107); Estimated GFR-MDRD 61; Globulin 3.4 g/dL (2.4-3.5); Glucose 92 mg/dL (83-110); Potassium 3.9 mmol/L (3.5-5.1); Protein, Total 7.4 g/dL (6.0-8.3); Sodium 137 mmol/L (136-145)
--- NOTE | 2019-02-08 16:30 | RAD ---
RADIOGRAPH CHEST 1 VIEW: DATE: 02/08/2019 HISTORY: 78-year-old female with generalized weakness FINDINGS: There are no airspace densities, pulmonary edema, pneumothorax, or cardiomegaly. The lateral costophr enic angles are sharp. IMPRESSION: No acute cardiopulmonary findings.
[2019-02-08] MEDS ORDERED: cefTRIAXone\\ROCEPHIN 1 GM VIAL ONE (16:52)
== END 2019-02-08 17:13 | disposition home or self-care (01) ==
LOC: BURERS 14:59
DX: N39.0 Urinary tract infection, site not specified (principal); R53.1 Weakness; K21.9 Gastro-esophageal reflux disease without esophagitis; I10 Essential (primary) hypertension; Z79.891 Long term (current) use of opiate analgesic; Z79.899 Other long term (current) drug therapy
CPT/HCPCS: 71045; 80053; 81003; 81015; 83880; 84484; 85025; 85610; 93005; 96361; 96374; J0696